=== PATIENT | male | born 1965 | race Caucasian/White ===

== ENCOUNTER 2025-01-13 23:01 | Inpatient (IN) | payer MEDICAID ==
[~2025-01-13] VITALS: Ht 180.3 cm; Wt 79.0 kg
--- NOTE | 2025-01-13 23:17 | Physician Documentation ---
History of Present Illness ~ Chief Complaint: Abdominal Pain Stated Complaint: TRANSFER M ALS SE Time Seen by MD: 23:16 HPI Patient presents to the emergency room as a transfer from [facility] for GI bleed. He has a history of duodenal ulcer. He endorses melena over the past couple of days. He is not on blood thinners. Denies NSAID use. Reports hematemesis. Medication Reconciliation Allergies: Coded Allergies: banana (Verified Allergy, Unknown, 01/13/25) carrot (Verified Allergy, Unknown, 01/13/25) morphine (Verified Allergy, Unknown, 01/13/25) Uncoded Allergies: PENICIALLNS (Allergy, Unknown, 01/13/25) PHENOBARBITOL (Allergy, Unknown, 01/13/25) SALMON (Allergy, Unknown, 01/13/25) Review of Systems ROS All review of systems negative except as per HPI Physical Exam Vital Signs: Temperature: 98.4, Source: Oral, Heart Rate: 93, Respiratory Rate: 16, BP: 98/51, Pulse Oximetry: 98, Weight: 79.000 Oxygen Flow Rate: 0 Physical Exam General: Patient is awake, alert, oriented x4 in no acute distress Head: Normocephalic and atraumatic. Eyes: Conjunctival normal. EOMI. PERRL. ENT: Mucous membranes moist. Neck: Supple, trachea is midline. Chest: Clear to auscultation bilaterally without rales, rhonchi, or wheezes. There is no accessory muscle use or retractions. Cardiac: RRR without murmurs, gallops, or rubs. Abd: Soft, nondistended, nontender, with normoactive bowel sounds. No guarding, rebound, or rigidity. Progress Results/Orders Results/Orders Orders - JUSTIN TIRADO MD Saline Lock (01/13/25 23:05) Type And Screen (01/13/25 23:05) Pantoprazole 40mg/Ns 100ml Bag (Protonix (01/14/25 01:00) Page Hospitalist (01/13/25 23:22) Fill Out Med Reconciliation (01/13/25 23:22) Completed Orders - JUSTIN TIRADO MD Cbc/Diff (01/13/25 23:05) Lipase (01/13/25 23:05) CMP (01/13/25 23:05) Vital Signs 01/13/25 01/13/25 23:02 23:15 Temp 98.4 98.4 Pulse 93 93 Resp 16 16 B/P (MAP) 111/70 98/51 (67) Pulse Ox 98 98 O2 Flow Rate 0 Laboratory Tests Test 01/13/25 23:17 White Blood Count 10.4 Red Blood Count 2.22 L Hemoglobin 7.5 L Hematocrit 21.3 *L Mean Corpuscular Volume 96.2 Mean Corpuscular Hemoglobin 34.0 H Mean Corpuscular Hemoglobin Concent 35.4 Red Cell Distribution Width 13.0 Platelet Count 216 Mean Platelet Volume 8.1 Neutrophils (%) (Auto) 63.3 Lymphocytes (%) (Auto) 22.5 Monocytes (%) (Auto) 13.5 H Eosinophils (%) (Auto) 0.3 Basophils (%) (Auto) 0.4 Neutrophils # (Auto) 6.6 Lymphocytes # (Auto) 2.4 Monocytes # (Auto) 1.4 H Eosinophils # (Auto) 0.0 Basophils # (Auto) 0.0 CBC Comment Sodium Level 137 Potassium Level 4.5 Chloride Level 104 Carbon Dioxide Level 23.5 L Anion Gap 10 Blood Urea Nitrogen 64 H Creatinine 1.07 Estimated GFR/1.73 m2 70 BUN/Creatinine Ratio 59.8 H Glucose Level 238 H Calcium Level 8.6 Total Bilirubin 0.5 Aspartate Amino Transf (AST/SGOT) 39 H Alanine Aminotransferase (ALT/SGPT) 70 Alkaline Phosphatase 88 Total Protein 5.2 L Albumin 2.5 L Globulin 2.7 Albumin/Globulin Ratio 0.9 L Lipase 60 Chemistry Comments Medical Decision Making Findings Patient presents to the emergency room as a transfer from [facility] for GI bleed. Protonix drip ordered. Patient's blood pressure is reassuring. Noted anemia however no active bleeding at this time and I believe he is safe for the floor. Departure Admitted to Inpatient Unit: yes, to hospitalist Impression: Primary Impression: GI bleed Condition: Guarded Referrals: NO PRIMARY CARE PROVIDER (PCP) Critical Care Note Total Time (mins): 30 Critical Care Note The very real possibility of a deterioration of this patient's condition required the highest level of my preparedness for sudden, emergent intervention. I provided critical care services, which included medication orders, frequent reevaluations of the patient's condition and response to treatment, ordering and reviewing test results, and discussing the case with various consultants. Excludes time spent performing separately billable procedures. The critical care time associated with the care of the patient was 30 minutes not counting procedures Signature Scribe Signature: No scribe Attestation: The note accurately reflects work and decisions made by me.Justin Tirado MD 01/13/25 23:57 JUSTIN TIRADO MD Jan 13, 2025 23:17
[2025-01-13 23:30] LABS: MEAN PLATELET VOLUME 8.1 FL (7.4-10.4); RED CELL DISTRIBUTION WIDTH 13.0 % (11.5-14.5)
[2025-01-13 23:43] LABS: CREATININE 1.07 MG/DL (0.60-1.10); TOTAL CARBON DIOXIDE 23.5 MMOL/L (24-32); eCRCL 77 ML/MIN; eGFR 70 ML/MIN
[2025-01-14] VITALS (12 sets, daily range): BP systolic 74–124; BP diastolic 41–70; PULSE 65–85; RESP 13–21; TEMP 97.3–99.6; O2SAT 96–100
[2025-01-14] MEDS ORDERED: LORA10TA7 PO (00:45)
[2025-01-14] MEDS ORDERED: FURO-150 PO (00:45)
[2025-01-14] MEDS ORDERED: GABA300T26 PO (00:45)
[2025-01-14] MEDS ORDERED: LANTUS SUBCUT (00:49)
[2025-01-14] MEDS ORDERED: INSU100V49 (00:49)
[2025-01-14] MEDS ORDERED: TAMS-55 PO (00:49)
[2025-01-14] MEDS ORDERED: EPIN0.3P3 IM (00:49)
[2025-01-14] MEDS ORDERED: potassium Cl 40MEQ/1/2NS 520ml 520 ML IV PRN (00:50)
[2025-01-14] MEDS ORDERED: potassium Cl 20 mEq SR tablet PO PRN ×2 (00:50)
[2025-01-14] MEDS ORDERED: magnesium sulf-water 4G/100mL 100 ML IV PRN (00:50)
[2025-01-14] MEDS ORDERED: magnesium Cl slow-release 64mg tablet PO PRN (00:50)
[2025-01-14] MEDS ORDERED: magnesium sulf-water 2g/50mL 50 ML IV PRN (00:50)
[2025-01-14] MEDS ORDERED: glucagon, human recombinant 1mg kit SUBCUT PRN (00:55)
[2025-01-14] MEDS ORDERED: dextrose 50%-water 50ml dispensing syringe IV PRN ×2 (00:55)
[2025-01-14] MEDS ORDERED: DEXTROSE 15 GM of carb/4 tabs (each vial/BOTTLE has 4 tablets) PO PRN ×2 (00:55)
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
--- NOTE | 2025-01-14 01:31 | RADIOLOGY REPORT ---
CHEST RADIOGRAPH Indication: rule out aspiration Technique: Single frontal view of the chest was obtained COMPARISON: None FINDINGS: Lines and Tubes: None Lungs: Clear. Pronounced left hemidiaphragmatic elevation. Pleura: No effusion. No pneumothorax. Cardiomediastinal contours: Unremarkable Bones: Unremarkable IMPRESSION: 1. No radiographic evidence of acute cardiopulmonary abnormality.
[2025-01-14 01:37] LABS: APTT 26 SECONDS (22-32); INR 1.1 INR
[2025-01-14] MEDS: insulin regular, human 10 units/0.1 ml syringe IV ONE (01:41)
[2025-01-14] MEDS: normal saline 1000ml 1,000 ML IV SCH (01:47)
[2025-01-14] MEDS: pantoprazole 40MG/NS 100ML BAG 100 ML IV SCH (01:49)
[2025-01-14] MEDS: pantoprazole 40MG/NS 100ML BAG 100 ML IV ONE (01:50)
--- NOTE | 2025-01-14 02:03 | ELECTROCARDIOGRAPH REPORT ---
[facility] Test Date: 2025-01-14 Test Time: 02:00:01 Pat Name: JAVIER WILLIAMSON Department: [facility] Patient ID: [id number] Room: ED 6 1 Gender: M [employer]ant Property: : 1965 Requested By: FRITZ BECK Order Number: [id number] Reading MD: Measurements Intervals [place] Rate: 93 P: 44 LA: 113 QRS: 83 QRSD: 94 T: 152 QT: 381 QTc: 474 Interpretive Statements Sinus rhythm Multiple premature complexes, vent & supraven Borderline short LA interval Consider RVH or posterior infarct Abnormal T, consider ischemia, lateral leads Please click the below link to view image of tracing.
[2025-01-14] MEDS: ondansetron/PF 4mg/2ml inj IV PRN (03:20)
--- NOTE | 2025-01-14 03:46 | RADIOLOGY REPORT ---
EXAM: CT CT HEAD INDICATION: recurrent syncope TECHNIQUE: CT of the head without intravenous contrast. Radiation Dose : 1. Head: CT Dose: CTDI volume is 54.74 mGy. Dose-length product is 1115.17 mGy*cm The dose indicators for CT are the volume Computed Tomography (CT) Dose Index (CTDIvol) and the Dose Length Product (DLP), and are measured in units of mGy and mGy-cm, respectively. These indicators are not patient dose, but values generated from the CT scanner acquisition factors. The report includes radiation exposure data for exposures received during this examination. COMPARISON: None FINDINGS: There is no evidence of acute intracranial hemorrhage, extra-axial collection, mass effect, midline shift, herniation or hydrocephalus. Increased prominence of the ventricles, sulci and cisterns consistent with the sequelae of atrophic cortical volume loss. The lewis-white differentiation is intact. Moderate diffuse confluent periventricular and subcortical white matter hypoattenuation is nonspecific but may be related to small vessel ischemic disease. The visualized paranasal sinuses and mastoid air cells are clear. The surrounding soft tissues and osseous structures are unremarkable. IMPRESSION: 1. No acute intracranial abnormality. 2. Chronic sequelae of microangiopathy and atrophic cortical volume loss. Radiation optimization: All CT scans at this facility use at least one of these dose optimization techniques: automated exposure control mA and/or kV adjustment per patient size (includes targeted exams where dose is matched to clinical indication) or iterative reconstruction.
[2025-01-14 04:08] LABS: URINE AMPHETAMINE SCREEN NEGATIVE (Neg); URINE BARBITUATE SCREEN NEGATIVE (Neg); URINE BENZODIAZEPINES SCREEN NEGATIVE (Neg); URINE CANNABINOID SCREEN POSITIVE (Neg); URINE COCAINE SCREEN NEGATIVE (Neg); URINE METHADONE SCREEN NEGATIVE (Neg); URINE OPIATE SCREEN NEGATIVE (Neg); URINE PHENCYCLIDINE SCREEN NEGATIVE (Neg)
[2025-01-14 04:22] LABS: LEUKOCYTE ESTERASE ,URINE NEGATIVE (Neg); NITRITES, URINE NEGATIVE (Neg); OCCULT BLOOD,URINE NEGATIVE (Neg)
[2025-01-14 04:27] LABS: UA COLLECTION TYPE NON-SPECIFIED
[2025-01-14] MEDS: HYDROmorphone inj. 0.5 MG/0.5 ML DISP.SYRIN IV ONE (04:53)
[2025-01-14 07:19] LABS: APTT 24 SECONDS (22-32); INR 1.2 INR
[2025-01-14 07:21] LABS: MEAN PLATELET VOLUME 8.8 FL (7.4-10.4); RED CELL DISTRIBUTION WIDTH 14.4 % (11.5-14.5)
[2025-01-14 07:44] LABS: CREATININE 1.02 MG/DL (0.60-1.10); TOTAL CARBON DIOXIDE 24.5 MMOL/L (24-32); eCRCL 81 ML/MIN; eGFR 74 ML/MIN
[2025-01-14 07:59] LABS: ETHANOL < 10 MG/DL (<10)
[2025-01-14] MEDS: K and/or MAG REPLACEMENT MC SCH (08:00)
[2025-01-14] MEDS: INSULIN LISPRO 100 UNIT/ML INSULN.PEN MULTI-DOSE SQ SCH (08:08)
[2025-01-14] MEDS ORDERED: fentaNYL/PF 50MCG/1 ML 2ML syringe ONE (09:22)
[2025-01-14] MEDS ORDERED: midazolam 1 mg/ML 2ml injection ONE (09:22)
[2025-01-14] MEDS ORDERED: LIDOcaine 2% (20mg/ml) 5ml vial ONE (09:28)
[2025-01-14] MEDS ORDERED: propofol inj 20 ML IV ONE (09:28)
[2025-01-14] MEDS ORDERED: LIDOcaine 1%/PF 5ML 10 MG/ML VIAL ONE (09:38)
--- NOTE | 2025-01-14 10:37 | CONSULTATION REPORT - RESIDENT ---
Consult Providers to CC Resident Creating Document: OBDULIO LEWIS RES History of Present Illness Reason for Admit\Complaint: Reason of GI consult: Melena and hematemesis. History of Present Illness 59 years old male patient came to the hospital transferred from [facility]. The patient presented there with complaints of black vomitus and black tarry stools for approximately 5 days. He stated that he presented with several episodes counting around 5--10 episodes in a day. Associated to this symptom the patient also endorsed diffuse abdominal pain and dizziness. Reports no aggravating or relieving factors. Denies using excessive aspirin or nonsteroidal anti-inflammatories in the recent past. No history of excessive alcohol use, but agrees to consuming a drink or two every week. Has a history of peptic ulcer disease in the past. Apparently had surgery for it, nature of which is unclear. His last colonoscopy was around 6-7 years ago with normal results and an EGD, does not recall the results of EGD. Patient's hemoglobin upon admission was 7.5 g, he remained hemodynamically stable, received a unit of packed red blood cells in the the transferring facility. Allergies: Coded Allergies: banana (Verified Allergy, Unknown, 01/13/25) carrot (Verified Allergy, Unknown, 01/13/25) morphine (Verified Allergy, Unknown, 01/13/25) Uncoded Allergies: PENICIALLNS (Allergy, Unknown, 01/13/25) PHENOBARBITOL (Allergy, Unknown, 01/13/25) SALMON (Allergy, Unknown, 01/13/25) Home Medications Home Medications Active Reported Epipen 2-Filemon (Epinephrine HCl) 0.3 Mg/0.3 Ml Auto.injct Unknown Dose IM ONCE 1 Days Insulin Lispro 100 Unit/Ml Vial Lantus* (Insulin Glargine) 100 Unit/1 Ml Vial 10 Units SUBCUT HS 30 Days Flomax* (Tamsulosin HCl) 0.4 Mg Cap.sr.24h 1 Cap PO DAILY 30 Days Loratadine 10 Mg Tablet 1 Tab PO DAILY 30 Days Horizant (Gabapentin Enacarbil) 300 Mg Tablet.er 1 Tab PO Q12H 30 Days Lasix* (Furosemide) 20 Mg Tablet 40 Tab PO DAILY 30 Days Past Medical History Past Medical History Hypertension, gastritis, duodenitis, gastroparesis Exam Vitals: Vital Signs Date Time Temp Pulse Resp B/P (MAP) Pulse Ox O2 Delivery O2 Flow Rate FiO2 01/14/25 10:20 71 14 102/70 (81) 100 Nasal Cannula 2.0 01/14/25 09:50 97.7 Physical exam: General: Awake, alert, oriented. No acute distress. Well-developed, hydrated and well-built nourished. No anemia, Jaundice or clubbing. HEENT: Conjunctive are pink, sclerae clear, no icterus, pupil is equal in both sides, reactive to light, no ear discharge, absence of upper and lower incisors, no pharyngeal erythema or an edema. Neck: Supple, no adenopathy, thyromegaly. Trachea is midline. No JVD. Chest: Respiratory: Vesicular breath sounds. No ronchi, crepitus or wheezing. Resonance is normal upon percussion of all lung mackenzie. Cardiovascular: S1-S2 regular sinus rhythm and, regular rate, no gallops, no rubs, no murmurs Abdomen: No visible distention, Bowel sounds present on auscultation, on palpation: soft, diffuse tenderness with deep palpation, no guarding, no rigidity. 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 Neurologic: Mental status: alert and conscious, oriented to place, person and time, preserved memory, normal speech. Cranial nerves I-XII: Normal. Motor system: Preserved power, coordination, no evidenced involuntary movements, strength 5/5 in four extremities. Sensory system: Preserved temperature, pain and vibration sensation. 2+ deep tendon reflexes in biceps, triceps, quadriceps. Negative Babinski. Cerebellar: No nystagmus, dysdiadochokinesia, normal ewwrrm-ug-gniz testing. Skin: Warm and dry. Diagnostic Data Last Recorded Lab Results: 01/14/25 0634 01/14/25 0634 Diagnostic Data: Laboratory Tests Test 01/14/25 06:34 Prothrombin Time 11.7 SECONDS (9.0-12.0) INR International Normalized Ratio 1.2 INR Activated Partial Thromboplast Time 24 SECONDS (22-32) Coagulation Comments Additional Plan Assessment and plan: 59 years old male patient came to the hospital transferred from [facility] for further management of upper GI bleeding. Upper GI bleedin) Peptic Ulcer disease is the most likely cause, because it is the most common condition causing upper GI bleed. Furthermore he does have a history of peptic ulcer disease in the past and is more prone for recurrent peptic ulcer disease. Other etiologies including gastroesophageal variceal bleed, gastric esophageal malignant lesions are less likely. Gastrointestinal vascular lesions are possible. Patient did have anemia, transfused appropriately. CT angiogram did not show any actively bleeding lesions. Recommendations: EGD this morning to evaluate causes for upper GI bleed, if necessary therapeutic maneuvers depending on the findings of EGD. The risks and benefits of EGD including hemorrhage and perforation and need for surgical intervention in the event of such a complication explained, patient understands and wishes to proceed. Further recommendations will be made depending on the findings of EGD. Conitnue protonix drip, can soon be switched over to oral Protonix after the planned EGD Continue NPO status Transfuse if Hb levels drop < 7. Avoid NSAIDs. Other comorbidities: Recurrent syncope. Chronic HFmrEF. Type 2 diabetes Mellitus. CKD stage 2. Metabolic acidosis. H/o of Hep C. BPH. All of above comorbidities addressed appropriately by the primary care team Code status: Full code DVT prophylaxis: SCDs Analgesia/sedation: On acetaminophen and Dilaudid prn. Line/tube: PIV GI prophylaxis: On Protonix drip. Nutrition: NPO for EGD PT: No Prognosis: Guarded Obdulio Hare Internal Medicine Resident [facility] Sepsis Screening Reassessment Date: Jan 14, 2025 Date of Service: Jan 14, 2025 Billing Provider: CANDIE KISER MD, FRANCO LUIS, RES Jan 14, 2025 10:37 CANDIE KISER MD Jan 14, 2025 11:34
--- NOTE | 2025-01-14 15:42 | VASCULAR REPORT ---
Indication: Dizziness /syncope Technique: Real-time ultrasound images of the neck vessels with lewis-scale, color and wave Doppler were obtained. Comparison: None Findings: Moderate bilateral atherosclerotic plaque. The following peak systolic velocities were recorded in cm/sec: Right internal carotid: 88 Right common carotid: 120 Right external carotid: 102 Right internal/common carotid ratio: 1.1 Left internal carotid: 119 Left common carotid: 131 Left external carotid: 78 Left internal/common carotid ratio: 1.6 Right vertebral artery: Patent with normal antegrade direction of flow. Left vertebral artery: Patent with normal antegrade direction of flow. Impression: No hemodynamically significant stenosis by velocity criteria. Moderate bilateral atherosclerotic plaque.
[2025-01-14] MEDS: HYDROmorphone inj. 0.5 MG/0.5 ML DISP.SYRIN IV PRN (17:12)
--- NOTE | 2025-01-14 18:49 | CARDIOLOGY REPORT ---
APPROVED REPORT EXAM: Comprehensive 2D, Doppler, and color-flow Echocardiogram. 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 2.94 cm IVC 16.69 mm FS (%) 21.3 % SV 31.6 ml CO 2.2 L/min M-Mode Dimensions Left Atrium(MM) 3.26 (2.5-4.0cm) Aortic Root 3.59 (2.2-3.7cm) Aortic Cusp Exc 1.72 (1.5-2.0cm) MV EPSS 0.8 (<0.5cm) Aortic Valve AoV Peak Edward. 128.8 cm/s AoV VTI 25.7 cm AO Peak GR. 6.6 mmHg AO Mean GR. 4 mmHg LVOT VTI 22.43 cm LVOT Peak Edward. 107.8 cm/s COREY(VTI)/BSA 2.63 cm2/m2 COREY (VTI) 2.63 cm2 AV DI 0.87 % Mitral Valve MV E Velocity 114.6 cm/s MV Peak Gr. 9 mmHg MV DECEL TIME 260 ms MV A Velocity 101.9 cm/s MV PHT 60 ms E/A Ratio 1.1 MVA (PHT) 3.67 cm2 MV VMax 148.0 cm/s TDI Lateral E' P. V 8.43 cm/s E/Lateral E' 13.6 Pulmonary Valve PAEDP 11.69 mmHg Tricuspid Valve TR P. Velocity 209 cm/s RAP ESTIMATE 10 mmHg TR Peak Gr. 18 mmHg RVSP 28 mmHg LEFT VENTRICLE The left ventricle is normal size with mild proximal septal thickening. Overall systolic function is mildly decreased. LVEF is 45%. RIGHT VENTRICLE Right ventricle is mildly dilated with adequate function. ATRIA The left atrium size is normal. AORTIC VALVE Trileaflet AV appears mildly sclerotic without stenosis. No insufficiency. MITRAL VALVE Mitral valve leaflets are thickened with mild annular calcification. No stenosis. Trace regurgitation. TRICUSPID VALVE The tricuspid valve is normal in structure with trace regurgitation. PULMONIC VALVE The pulmonary valve is normal in structure with trace insufficiency. GREAT VESSELS The aortic root is normal in size. The ascending aorta is normal in size. The IVC is normal in size and collapses >50% with inspiration. PERICARDIUM Normal pericardium. No effusion. Other Information Study Quality: Fair due to body habitus. Conclusion The left ventricle is normal size with mild proximal septal thickening. Overall systolic function is mildly decreased. LVEF is 45%. Right ventricle is mildly dilated with adequate function. The left atrium size is normal. Trileaflet AV appears mildly sclerotic without stenosis. No insufficiency. Mitral valve leaflets are thickened with mild annular calcification. No stenosis. Trace regurgitation. The tricuspid valve is normal in structure with trace regurgitation. The pulmonary valve is normal in structure with trace insufficiency. Normal pericardium. No effusion.
--- NOTE | 2025-01-14 20:04 | PROGRESS NOTE- Residence ---
Progress Note - Resident Providers to CC Resident Creating Document: LIZZY LINTON RES CC: ASHLIE GARNETT MD ~ Antibiotic Timeout Antibiotic Ordered?: No Subjective Patient was seen and examined at his bedside, patient stated that he feels slightly better compared to yesterday. Patient was transferred 1 unit of PRBC and he underwent his EGD today which reported low active bleeding and no active ulcer Objective Vital Signs Date Time Temp Pulse Resp B/P (MAP) Pulse Ox O2 Delivery O2 Flow Rate FiO2 01/14/25 17:12 15 01/14/25 15:00 97.4 65 98/54 (69) 96 Nasal Cannula 3.0 Result Diagram: 01/14/2563301/14/25633 General: Awake, oriented to person, place and time HEENT: Pale conjunctivae, sclerae clear, no icterus, pupil is equal in both sides, reactive to light, no ear discharge, no pharyngeal erythema or an edema. Patient has few teeth in the upper jaw Neck: Supple, no JVD, no lymphadenopathy and thyromegaly. Chest: Equal air entry on both lungs, no additional sounds no rhonchi no wheezing at the moment. Cardiovascular: S1-S2 regular sinus rhythm and, regular rate, no gallops, no rubs, no murmurs Abdomen: No visible peristalsis, Bowel sounds present on auscultation, soft, diffuse tenderness noted especially in the epigastric region, no guarding, no rigidity; surgical scar noted Extremities: No cyanosis clubbing or edema, capillary refill intact, peripheral pulsations are intact on both sides. Patient has a right 4th toe amputation; patient has left knee surgical scar Central Nervous System: No focal neurological deficits, no motor or sensory weakness in all 4 extremities, could move all 4 extremities, 2+ deep tendon reflexes, negative Babinski. Musculoskeletal: No joint swelling, deformities, inflammations, and no scoliosis and back tenderness Skin: Warm and dry. Dry oral mucosa. Coagulation Studies Laboratory Tests Test 01/14/25 06:34 Prothrombin Time 11.7 SECONDS (9.0-12.0) INR International Normalized Ratio 1.2 INR Activated Partial Thromboplast Time 24 SECONDS (22-32) Coagulation Comments Advance Care Planning Advanced Care plannin - 30 Minutes Plan Plan Possible upper GI bleed History of perforated duodenal ulcer Normocytic normochromic anemia Patient's hemoglobin increased to 8.2 after 1 unit transfusion of PRBC Patient has soft blood pressure but maintaining map more than 65 No evidence of cirrhosis on CT. Total bilirubin with in normal limits. At the outside hospital, CTA angio abdomen/pelvis with contrast was done which showed no evidence of active GI bleed, elevation of the left hemidiaphragm, mild heterogenicity can be related to atelectasis, 9 mm hypodense lesion within the spleen stable, mild perinephric stranding, no hydronephrosis, colonic diverticula including hypodense diverticular limits evaluation for a bleed, under distended thick-walled urinary bladder, prostatomegaly with calcifications, subcentimeter short axis lymph nodes, fat and omentum containing ventral hernia. GI was consulted, patient underwent EGD today which reported low active bleeding and no active ulcer(complete report pending) Continue Protonix drip today, transitioned to IV Protonix b.i.d. from tomorrow Continue NS at 75 mL/hour Continue Zofran 4 mg IV q.6h p.r.n. for nausea/vomiting Check H&H q.6h Iron studies, vitamin B12 and folate level ordered TSH level ordered Recurrent syncope Blurry vision Carotid artery ultrasound reported no significant stenosis; moderate bilateral atherosclerotic plaque Head CT reported no acute changes;Chronic sequelae of microangiopathy and atrophic cortical volume loss. Continue IV fluids Orthostatic vitals ordered Heart failure with reduced ejection fraction Echocardiogram reported EF of 45%. The left ventricle is normal size with mild proximal septal thickening. 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 daily Active drug abuse Patient states he continues to smoke marijuana every day Reviewed social Service and substance abuse consults Critical care time 35 minutes. Diet: Clear liquid diet DVT prophylaxis: SCDs GI prophylaxis: Protonix Disposition: We will continue to monitor the patient. Lizzy Linton MD Internal Medicine Resident, PGY 1 Date of Service: Jan 14, 2025 Billing Provider: ASHLIE GARNETT MD Common Visit Codes: [id number] CARE 30-74 MIN LIZZY LINTON, RES Jan 14, 2025 20:04 ASHLIE GARNETT MD Jan 19, 2025 16:27
[2025-01-14] MEDS: insulin glargine (Lantus) pen - multi-dose SQ SCH (21:42)
[2025-01-14 22:19] LABS: PRO BRAIN NATRIURETIC PEPTIDE 185 PG/ML (0-125)
[2025-01-14] MEDS: LidoCAINE 2% Topical Jelly 11mL syringe (UROJET) TOP ONE (23:58)
[2025-01-15] VITALS (14 sets, daily range): BP systolic 96–135; BP diastolic 58–76; PULSE 67–88; RESP 13–23; TEMP 97.7–98.3; O2SAT 95–100
[2025-01-15 00:27] LABS: MEAN PLATELET VOLUME 7.7 FL (7.4-10.4); RED CELL DISTRIBUTION WIDTH 14.8 % (11.5-14.5)
--- NOTE | 2025-01-15 08:54 | RADIOLOGY REPORT ---
EXAM: DI CHEST,SINGLE VIEW Indication: pain Technique: Single frontal view of the chest was obtained Comparison: DI CHEST,SINGLE VIEW on DOS: 01/14/25, XR CHEST 1 VIEW AP OR PA on DOS: 01/13/25 FINDINGS: Lines and Tubes: None Lungs: No focal consolidation. Pleura: No effusion. No pneumothorax. Cardiomediastinal contours: Unremarkable. Atherosclerotic vascular calcifications of the thoracic aorta are noted. Bones: No acute osseous abnormality. IMPRESSION: No acute cardiopulmonary disease.
--- NOTE | 2025-01-15 08:59 | PROGRESS NOTE- Residence ---
Progress Note - Resident Providers to CC Resident Creating Document: MELA LEWISLucho SAGASTUMEIS, RES ~ Antibiotic Timeout Antibiotic Ordered?: No Subjective The patient has been evaluated at the bedside. Patient currently complaints mild shortness of breath, states that he did not have bowel movements. Last bowel movement was six days ago when he reported melena. The patient also reports pain in her right side of the abdomen 2/10 in intensity without radiation. EGD performed yesterday showed normal esophagus, large paraesophageal hernia, normal duodenal bulb, no blood or bleeding lesion seen in the stomach. Objective Vital Signs Date Time Temp Pulse Resp B/P (MAP) Pulse Ox O2 Delivery O2 Flow Rate FiO2 01/15/25 06:30 74 01/14/25 20:00 13 97 Room Air 01/14/25 15:00 97.4 98/54 (69) 3.0 Physical exam: Physical exam: General: Awake, alert, oriented. No acute distress. Well-developed, hydrated and well-built nourished. No anemia, Jaundice or clubbing. HEENT: Conjunctive are pink, sclerae clear, no icterus, pupil is equal in both sides, reactive to light, no ear discharge, absence of upper and lower incisors, no pharyngeal erythema or an edema. Neck: Supple, no adenopathy, thyromegaly. Trachea is midline. No JVD. Chest: Respiratory: Vesicular breath sounds. No ronchi, crepitus or wheezing. Resonance is normal upon percussion of all lung mackenzie. Cardiovascular: S1-S2 regular sinus rhythm and, regular rate, no gallops, no rubs, no murmurs Abdomen: No visible distention, Bowel sounds present on auscultation, on palpation: soft, tenderness at the level of the right side of the abdomen with deep palpation, no guarding, no rigidity. 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 Neurologic: Mental status: alert and conscious, oriented to place, person and time, preserved memory, normal speech. Cranial nerves I-XII: Normal. Motor system: Preserved power, coordination, no evidenced involuntary movements, strength 5/5 in four extremities. Sensory system: Preserved temperature, pain and vibration sensation. 2+ deep tendon reflexes in biceps, triceps, quadriceps. Negative Babinski. Cerebellar: No nystagmus, dysdiadochokinesia, normal [id number] testing. Skin: Warm and dry. Result Diagram: 01/16/25 1212 01/16/25 0658 Coagulation Studies Laboratory Tests Test 01/14/25 06:34 Prothrombin Time 11.7 SECONDS (9.0-12.0) INR International Normalized Ratio 1.2 INR Activated Partial Thromboplast Time 24 SECONDS (22-32) Coagulation Comments Assessment Assessment 59 years old male patient came to the hospital transferred from [facility] for further management of upper GI bleeding. Plan Plan Upper GI endoscopy performed yesterday showed normal esophagus, large paraesophageal hernia. Antrum of the stomach was biopsied. Normal duodenal bulb. No blood or bleeding lesions were seen induced stomach, esophagus or duodenal bulb. Recommendations: Continue regular diet. Protonix 40 mg daily. Continue management as per primary team. Awaiting for pathology results. Keep monitoring for recurrent bleeding. Transfuse if Hb levels drop < 7. Avoid NSAIDs. Other comorbidities: Recurrent syncope. Chronic HFmrEF. Type 2 diabetes Mellitus. CKD stage 2. Metabolic acidosis. H/o of Hep C. BPH. All of above comorbidities addressed appropriately by the primary care team Code status: Full code DVT prophylaxis: SCDs Analgesia/sedation: On acetaminophen and Dilaudid prn. Line/tube: PIV GI prophylaxis: Protonix 40 mg daily. Nutrition: Regular diet. PT: Yes Prognosis: Guarded Jeovany Hare Internal Medicine Resident [facility] Date of Service: Jan 15, 2025 Billing Provider: CANDIE KISER MD Addendum We were called around 4:00 p.m. because the patient complained of right-sided abdominal pain. During our evaluation patient was complaining of severe pain however his physical exam was not consistent with the symptoms. An ultrasound and CAT scan were done to evaluate this in view of endoscopy the previous day, both of which were within normal limits. Patient apparently subsequently developed low blood pressure and rapid response was called and was successfully resuscitated. Patient was re-evaluated around 630 in the evening at which time he was very confused and agitated. He was somewhat incoherent. He was very pruritic and scratching his entire body and he pulled his IV out and there was some blood at the IV site. The nurse was called and this was attended to. Patient did not complain of abdominal pain at that time and he just wanted to go home. I was called also to consider colonoscopy and he refused to have colonoscopy and refused to get the prep. The colonoscopy was requested because the endoscopy was essentially nondiagnostic for any bleeding lesions and apparently had another bout of melena. At that point I decided that the drop in hemoglobin and the melena was essentially simply the blood it had not been evacuated in the bowel yet. I did not see signs of any active bleeding at this time. I also did not think colonoscopy was necessity at that time. 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 At this time patient had stable vital signs and colonoscopy prep was not ordered because the patient refused and I also thought that the colonoscopy was not necessary at this time and it would be difficult for him to get prepped and colonoscopy be done. JEOVANY LEWIS, RES Jan 15, 2025 08:59 CANDIE KISER MD Jan 16, 2025 16:18
[2025-01-15 09:25] LABS: APTT 23 SECONDS (22-32); INR 1.1 INR
[2025-01-15 09:29] LABS: % IRON SATURATION 5 % (11-46); TOTAL CARBON DIOXIDE 20.0 MMOL/L (24-32)
[2025-01-15 09:30] LABS: CHOL/HDL RATIO 1.9 (0.00-4.99); CREATININE 1.15 MG/DL (0.60-1.10); LDL CHOLESTEROL 29 MG/DL (50-100); PHOSPHORUS 2.6 MG/DL (2.3-4.5); eCRCL 72 ML/MIN; eGFR 65 ML/MIN
[2025-01-15 10:36] LABS: MEAN PLATELET VOLUME 8.0 FL (7.4-10.4); RED CELL DISTRIBUTION WIDTH 14.6 % (11.5-14.5)
[2025-01-15 12:29] LABS: MEAN PLATELET VOLUME 7.9 FL (7.4-10.4); RED CELL DISTRIBUTION WIDTH 14.7 % (11.5-14.5)
[2025-01-15 15:39] LABS: OCCULT BLOOD STOOL POSITIVE (Neg)
[2025-01-15 16:01] LABS: ABG BASE EXCESS -4.3 mmol/L (-2.0-3.0); ABG HCO3 17.2 mmol/L (21.0-28.0); ABG OXYGEN SATURATION 99.9 % (94.0-98.0); ABG PCO2 (T) 21.3 mmHg (35.0-48.0); ABG PH (T) 7.527 (7.350-7.450); ABG PO2 (T) 477.0 mmHg (83.0-108.0); ALLEN'S TEST POSITIVE; FCOHb 0.6 % (0.5-1.5); FHHb 0.1 % (0.0-5.0); FIO2 100.0 mmHg/%; FMetHb 0.3 % (0.0-1.5); FO2Hb 99.0 % (94.0-98.0); MODE MASK - NRB; PATIENT TEMPERATURE 37.2; TOTAL HEMOGLOBIN 8.8 G/dl (13.5-17.5)
--- NOTE | 2025-01-15 16:40 | RADIOLOGY REPORT ---
Indication: R ABD PAIN Technique: DI ABDOMEN,SINGLE VIEW([id number] Comparison: None FINDINGS/IMPRESSION: m multiple loops of air distended small bowel up to approximately 3.5 cm which can be secondary ileus, obstruction. Cholecystectomy. Atherosclerotic disease. Upper abdomen not completely visualized.
--- NOTE | 2025-01-15 16:41 | RADIOLOGY REPORT ---
CHEST RADIOGRAPH Indication: OLIVA ORDERS Technique: DI CHEST,SINGLE VIEW COMPARISON: None FINDINGS: The cardiac silhouette is enlarged. The lungs demonstrate bilateral patchy airspace opacities. The pulmonary vasculature is prominent. There is no pleural effusion. There is no pneumothorax. Elevation left hemidiaphragm. IMPRESSION: Cardiomegaly with pulmonary vascular congestion and bilateral patchy airspace opacities.
--- NOTE | 2025-01-15 16:48 | RADIOLOGY REPORT ---
Indication: desatting and severe intractable pain Technique: CT axial images of the abdomen and pelvis are obtained without contrast. Coronal and sagittal reformats were obtained. Radiation Dose Information: CTDI volume is 16 mGy. Dose-length product is 907 mGy*cm Comparison: None FINDINGS: There is limited interpretation of the abdomen and pelvis without administration of intravenous contrast. Lung bases demonstrate atelectasis. Adrenal glands, spleen, pancreas, liver unremarkable in shape. Cholecystectomy. Kidneys demonstrate no hydronephrosis / nephrolithiasis. Stomach is partially distended. Small bowel loops are normal in caliber. Colonic diverticular disease. Normal appendix. Moderate volume stool in the colon. Abdominal aortic atherosclerotic disease. Bladder partially distended. No free pelvic fluid. No inguinal lymphadenopathy. No aggressive osseous process. Elevation left hemidiaphragm. There is a paraumbilical / left ventral wall hernia containing fat measuring 2.4 x 2.1 cm. Moderate thoracolumbar degenerative disc disease. IMPRESSION: Limited evaluation without contrast. Elevation left hemidiaphragm. Left ventral wall hernia containing fat measuring 2.5 cm. Atherosclerotic disease. Cholecystectomy. Colonic diverticular disease. Other findings as described.
[2025-01-15] MEDS: diazepam inj 5 MG/ML inj. IV PRN (17:17)
[2025-01-15 17:33] LABS: MEAN PLATELET VOLUME 8.2 FL (7.4-10.4); RED CELL DISTRIBUTION WIDTH 14.8 % (11.5-14.5)
[2025-01-15] MEDS: ondansetron/PF 4mg/2ml inj IV ONE (18:35)
--- NOTE | 2025-01-15 18:36 | RADIOLOGY REPORT ---
Indication: Intractable abdominal pain. Acute Mesenteric ischemia Technique: CT axial images of the abdomen and pelvis are obtained with intravenous contrast. Coronal and sagittal reformats were obtained. Radiation Dose Information: CTDI volume is 21 mGy. Dose-length product is 1548 mGy*cm Comparison: CT CT ABDOMEN PELVIS on DOS: 01/15/25 FINDINGS: No large defect within the main left right pulmonary arteries. Ascending aorta measures 3.2 cm. Aortic atherosclerotic disease descending thoracic aorta measures 2.3 cm diameter. Abdominal aorta normal in caliber with atherosclerotic calcification disease, mild eccentric mural wall thrombus. The celiac artery is demonstrating approximately 70% narrowing proximally. SMA is patent. Renal arteries patent. ADELAIDA patent. [id number] thoracolumbar degenerative disc disease. The trachea is patent. No pneumothorax. Bilateral atelectasis. No pulmonary airspace consolidation. Trace bilateral pleural effusions. Heart normal in size. Coronary artery calcification disease. No supraclavicular and axillary lymphadenopathy. Adrenal m glands unremarkable. Splenic hypodense lesion measuring 10 mm. Pancreas unremarkable. No enhancing hepatic lesion. Cholecystectomy. No hydronephrosis. Diffuse gastric wall edema / thickening and mucosal hyperemia. Small bowel loops normal in caliber. No pneumatosis. Colonic diverticular disease. Normal appendix. Moderate volume stool in the colon. Bladder distended. No free pelvic fluid. No inguinal lymphadenopathy. Elevation left hemidiaphragm. Left ventral wall abdominal hernia measuring 2.6 cm containing fat. IMPRESSION: Gastric wall edema / thickening and mucosal hyperemia, possibly secondary to gastritis. Recommend GI consultation to further evaluate. Patent SMA. No evidence for bowel pneumatosis. Approximately 70% narrowing of the proximal celiac artery which could be secondary to median arcuate ligament , Atherosclerotic disease. Coronary artery calcification disease. Splenic hypodense lesion measuring 10 mm which can be further characterized on multiphasic MRI abdomen with and without contrast Colonic diverticular disease. Other findings as described
--- NOTE | 2025-01-15 20:06 | VASCULAR REPORT ---
[facility] Vascular Department [facility] [address] [place] [address] [email or web address] LAC NEYMARO AARONI Name : JAVIER WILLIAMSON Date : 01/15/2025 Birthdate : 1965 Accession# : [id number] Sex : M Age : 59Y Roofing Layer : David Tavera RVT Referring Dr. : MORELIA FLORES Preliminary Report The above named patient was referred for a NON-INVASIVE MESENTERIC ARTERY EVALUATION. The evaluation includes grayscale imaging, color flow Doppler and spectral analysis of the mesenteric and other associated abdominal arteries. Patient IN-PATIENT [employer] Abdominal pain. Assessment Origin Proximal Mid Distal Superior Mesenteric A. PSV 119.2cm/s PSV 183.2cm/s PSV 153.8cm/s EDV 15.3cm/s EDV 16.7cm/s EDV 10.2cm/s Inferior Mesenteric A. PSV 80.1cm/s EDV 13.0cm/s Aortic Doppler Velocity Waveform Proximal Aorta 129.8 cm/sec Impression: Very poor visualization due to bowel gas. Celiac, hepatic, and splenic arteries are not visualized. Superficial femoral artery is poorly visualized, but no stenosis is noted in visualized portions.
--- NOTE | 2025-01-15 20:41 | PROGRESS NOTE- Residence ---
Progress Note - Resident Providers to CC Resident Creating Document: LIZZY LINTON RES CC: ASHLIE GARNETT MD ~ Antibiotic Timeout Antibiotic Ordered?: No Subjective The patient has been evaluated at the bedside. Patient was extremely anxious and agitated, patient's hemoglobin had dropped today and we transfused 1 unit of PRBC; patient's vitals were stable patient suddenly started hyperventilating and a rapid was called; ABG was done which showed metabolic alkalosis; patient appeared extremely anxious. Patient also developed black tarry stool; we immediately ordered a CT abdomen to rule out any bleeding post EGD, patient was complaining of severe abdominal pain throughout the abdomen we ordered a CTA abdomen/pelvis which reported more than 70% narrowing of the proximal celiac artery secondary to median arcuate ligament. Vascular surgeon has been consulted Objective Vital Signs Date Time Temp Pulse Resp B/P (MAP) Pulse Ox O2 Delivery O2 Flow Rate FiO2 01/15/25 17:50 98.2 67 18 128/67 (87) 97 Nasal Cannula 2.0 01/15/25 16:36 N/A Result Diagram: 01/15/25 1705 01/15/25 0857 General: Awake, oriented to person, place and time; extremely anxious HEENT: Pale conjunctivae, sclerae clear, no icterus, pupil is equal in both sides, reactive to light, no ear discharge, no pharyngeal erythema or an edema. Patient has few teeth in the upper jaw Neck: Supple, no JVD, no lymphadenopathy and thyromegaly. Chest: Equal air entry on both lungs, no additional sounds no rhonchi no wheezing at the moment. Cardiovascular: S1-S2 regular sinus rhythm and, regular rate, no gallops, no rubs, no murmurs Abdomen: No visible peristalsis, severe tenderness noted no guarding, no rigidity; surgical scar noted Extremities: No cyanosis clubbing or edema, capillary refill intact, peripheral pulsations are intact on both sides. Patient has a right 4th toe amputation; patient has left knee surgical scar Central Nervous System: No focal neurological deficits, no motor or sensory weakness in all 4 extremities, could move all 4 extremities, 2+ deep tendon reflexes, negative Babinski. Musculoskeletal: No joint swelling, deformities, inflammations, and no scoliosis and back tenderness Skin: Warm and dry. Dry oral mucosa. Coagulation Studies Laboratory Tests Test 01/15/25 08:57 Prothrombin Time 11.0 SECONDS (9.0-12.0) INR International Normalized Ratio 1.1 INR Activated Partial Thromboplast Time 23 SECONDS (22-32) Coagulation Comments Advance Care Planning Advanced Care plannin - 30 Minutes Assessment Assessment 59 years old male patient came to the hospital transferred from [facility] for further management of upper GI bleeding. Plan Plan Possible upper GI bleed History of perforated duodenal ulcer Normocytic normochromic anemia Patient had multiple his hemoglobin again at seven and was transferred 1 unit of PRBC today And underwent EGD yesterday which reported no active bleed Patient also had bloody study stools today Plan Continue IV Protonix to 40 mg b.i.d. Continue NS at 75 mL/hour Continue Zofran 4 mg IV q.6h p.r.n. for nausea/vomiting Check H&H q.6h Median arcuate ligament syndrome Splenic hypodense lesion Colonic diverticular disease. Abdominal pelvis CTA; reported 70% narrowing of the proximal celiac artery; atherosclerotic disease and coronary artery calcification noted and spleen hypodense measuring 10 mm Plan: Consulted vascular surgeon Appreciate recommendations Recurrent syncope Blurry vision Carotid artery ultrasound reported no significant stenosis; moderate bilateral atherosclerotic plaque Head CT reported no acute changes;Chronic sequelae of microangiopathy and atrophic cortical volume loss. Continue IV fluids Orthostatic vitals ordered Heart failure with reduced ejection fraction Echocardiogram reported EF of 45%. The left ventricle is normal size with mild proximal septal thickening Patient has no signs of fluid overload, and appears dehydrated BNP is mildly elevated at 185 Patient has continued to has a blood pressure; We will initiate GDMT drugs once patient stabilizes Diabetes mellitus type 2 complicated with peripheral neuropathy which was diagnosed two years ago Noncompliant Patient's HbA1c is elevated at 7 Initiated the patient on severe hyperglycemia hypoglycemic protocol Patient stated that he normally uses gabapentin for his peripheral neuropathy but stopped using couple of months ago; currently he has no neuropathic pain; hold gabapentin CKD stage G2 Continue IV fluids Transaminitis History of hepatitis C; patient has mild elevation of AST Benign prostatic hyperplasia Continue home medication tamsulosin 0.4 mg p.o. daily Active drug abuse Patient states he continues to smoke marijuana every day Patient's Toxicology tested positive for fentanyl Ordered social service and substance abuse consults Diet: Clear liquid diet DVT prophylaxis: SCDs GI prophylaxis: Protonix Disposition: Continue to closely monitor the patient, awaiting recommendations from vascular surgeon Lizzy Linton MD Internal Medicine Resident, PGY 1 Date of Service: Jan 15, 2025 Billing Provider: ASHLIE GARNETT MD Common Visit Codes: [id number] INP/OBS CARE(HIGH) LIZZY LINTON, RES Jan 15, 2025 20:41 ASHLIE GARNETT MD Jan 19, 2025 16:28
[2025-01-15 23:07] LABS: MEAN PLATELET VOLUME 7.8 FL (7.4-10.4); RED CELL DISTRIBUTION WIDTH 15.0 % (11.5-14.5)
[2025-01-16] VITALS (8 sets, daily range): BP systolic 110–144; BP diastolic 33–83; PULSE 66–92; RESP 14–20; TEMP 97.6–98.5; O2SAT 94–97
--- NOTE | 2025-01-16 05:14 | PROGRESS NOTE ---
Clinical Note Clinical Note Progress Note: Per night sign-out from the primary team, Dr. Vázquez was consulted regarding the CTA abdomen findings, CTA Abdomen revealed approximately 70% narrowing of the proximal celiac artery, likely secondary to median arcuate ligament compression. Dr. Vázquez advised that, given the degree of stenosis and the possible underlying median arcuate ligament syndrome (MALS), the patient would benefit from referral to a tertiary care center-- [place] or [facility] for further evaluation. Patient will benefit from further comprehensive vascular assessment and consideration of median arcuate ligament release, with or without stenting, particularly if the patient is symptomatic or if the stenosis is significant. Willy Cobos MD Internal Medicine Resident, PGY-2 WILLY COBOS, RES Jan 16, 2025 05:14
[2025-01-16 07:29] LABS: MEAN PLATELET VOLUME 7.8 FL (7.4-10.4); RED CELL DISTRIBUTION WIDTH 14.5 % (11.5-14.5)
[2025-01-16 07:45] LABS: APTT 25 SECONDS (22-32); INR 1.1 INR
[2025-01-16 07:49] LABS: CREATININE 1.01 MG/DL (0.60-1.10); PHOSPHORUS 2.6 MG/DL (2.3-4.5); TOTAL CARBON DIOXIDE 23.9 MMOL/L (24-32); eCRCL 82 ML/MIN; eGFR 75 ML/MIN
--- NOTE | 2025-01-16 09:34 | PROGRESS NOTE- Residence ---
Progress Note - Resident Providers to CC Resident Creating Document: OBDULIO LEWIS ALEJANDRO, RES ~ Antibiotic Timeout Antibiotic Ordered?: No Subjective The patient has been evaluated at the bedside. Has remained stable overnight. He states that pain is relieved with pain medication. No episodes of vomiting, melena or hematochezia reported. Last bowel movement this morning. Dr. Vázquez was consulted who advised that given 0 the degree of the stenosis in the possible underlying median arcuate ligament syndrome the patient will benefit from referral to tertiary care center. I discussed with the primary care doctor about last night events. I also reported to him that I did not see the necessity of colonoscopy at this time. I expressed difficulty in him getting prepped also. Next item I discussed the CT findings with him that I had seen last night. There was consensus that patient does not need any acute intervention at this time, colonoscopy if necessary could be performed as an outpatient. And also it was discussed that if indeed he does have significant celiac axis stenosis, he needs to be cared for in a tertiary care center. Objective Vital Signs Date Time Temp Pulse Resp B/P (MAP) Pulse Ox O2 Delivery O2 Flow Rate FiO2 01/16/25 06:30 65 01/16/25 06:00 98.2 20 114/58 (76) 94 Room Air 01/15/25 18:00 2.0 01/15/25 16:36 N/A Physical exam: General: Awake, alert, oriented. No acute distress. Well-developed, hydrated and well-built nourished. No anemia, Jaundice or clubbing. HEENT: Conjunctive are pink, sclerae clear, no icterus, pupil is equal in both sides, reactive to light, no ear discharge, absence of upper and lower incisors, no pharyngeal erythema or an edema. Neck: Supple, no adenopathy, thyromegaly. Trachea is midline. No JVD. Chest: Respiratory: Vesicular breath sounds. No ronchi, crepitus or wheezing. Resonance is normal upon percussion of all lung mackenzie. Cardiovascular: S1-S2 regular sinus rhythm and, regular rate, no gallops, no rubs, no murmurs Abdomen: No visible distention, Bowel sounds present on auscultation, on palpation: soft, tenderness at the level of the right side of the abdomen with deep palpation, no guarding, no rigidity. 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 Neurologic: Mental status: alert and conscious, oriented to place, person and time, preserved memory, normal speech. Cranial nerves I-XII: Normal. Motor system: Preserved power, coordination, no evidenced involuntary movements, strength 5/5 in four extremities. Sensory system: Preserved temperature, pain and vibration sensation. 2+ deep tendon reflexes in biceps, triceps, quadriceps. Negative Babinski. Cerebellar: No nystagmus, dysdiadochokinesia, normal [id number] testing. Skin: Warm and dry. Result Diagram: 01/16/2565701/16/25657 Coagulation Studies Laboratory Tests Test 01/16/25 06:58 Prothrombin Time 10.8 SECONDS (9.0-12.0) INR International Normalized Ratio 1.1 INR Activated Partial Thromboplast Time 25 SECONDS (22-32) Coagulation Comments Assessment Assessment 59 years old male patient came to the hospital transferred from [facility] for further management of upper GI bleeding. Plan Plan Abdominal pain: Possible Median arcuate ligament syndrome: Upper GI endoscopy performed yesterday showed normal esophagus, large paraesophageal hernia. Antrum of the stomach was biopsied. Normal duodenal bulb. No blood or bleeding lesions were seen induced stomach, esophagus or duodenal bulb. Rapid response was called yesterday due to right upper quadrant pain and respiratory rate of 6. The patient was evaluated by primary team, CTA scan of the abdomen with IV contrast was obtained which showed gastric wall edema, 70% narrowing in the proximal celiac artery which could be secondary to median arcuate ligament, atherosclerotic disease. Dr. Vázquez was consulted who advised that given the degree of the stenosis in the possible underlying median arcuate ligament syndrome the patient will benefit from referral to tertiary care center. Hemoglobin and hematocrit remained stable. The patient had received 2 units of blood so far, last unit of blood yesterday. No further obvious GI bleeding noticed. Recommendations: Continue current diet as tolerated. Metoclopramide IV as needed for nausea. Protonix 40 mg daily. Continue management as per primary team. Follow-up gastric pathology results. Can be done as an outpatient Other comorbidities: Recurrent syncope. Chronic HFmrEF. Type 2 diabetes Mellitus. CKD stage 2. Metabolic acidosis. H/o of Hep C. BPH. All of above comorbidities addressed appropriately by the primary care team Code status: Full code DVT prophylaxis: SCDs Analgesia/sedation: On acetaminophen and Dilaudid prn. Line/tube: PIV GI prophylaxis: Protonix 40 mg daily. Nutrition: Regular diet. PT: Yes Prognosis: Guarded Obdulio Hare Internal Medicine Resident [facility] Date of Service: Jan 16, 2025 Billing Provider: CANDIE KISER MD, FRANCO LUIS, RES Jan 16, 2025 09:34 CANDIE KISER MD Jan 16, 2025 16:33
[2025-01-16 12:53] LABS: MEAN PLATELET VOLUME 8.7 FL (7.4-10.4); RED CELL DISTRIBUTION WIDTH 15.0 % (11.5-14.5)
[2025-01-16 19:05] LABS: MEAN PLATELET VOLUME 8.2 FL (7.4-10.4); RED CELL DISTRIBUTION WIDTH 14.6 % (11.5-14.5)
--- NOTE | 2025-01-16 19:26 | PROGRESS NOTE- Residence ---
Progress Note - Resident Providers to CC Resident Creating Document: LIZZY LINTON RES CC: ASHLIE PA MD ~ Antibiotic Timeout Antibiotic Ordered?: No Subjective The patient has been evaluated at the bedside. Has remained stable overnight. He states that pain is relieved with pain medication. No episodes of vomiting, melena or hematochezia reported. Was bowel movement was reported this morning which also continued to be black tarry. Objective Vital Signs Date Time Temp Pulse Resp B/P (MAP) Pulse Ox O2 Delivery O2 Flow Rate FiO2 01/16/25 15:00 98.5 75 20 144/75 (98) 95 Room Air 01/15/25 18:00 2.0 01/15/25 16:36 N/A Result Diagram: 01/16/25 1833 01/16/25 0658 General: Awake, oriented to person, place and time; extremely anxious HEENT: Pale conjunctivae, sclerae clear, no icterus, pupil is equal in both sides, reactive to light, no ear discharge, no pharyngeal erythema or an edema. Patient has few teeth in the upper jaw Neck: Supple, no JVD, no lymphadenopathy and thyromegaly. Chest: Equal air entry on both lungs, no additional sounds no rhonchi no wheezing at the moment. Cardiovascular: S1-S2 regular sinus rhythm and, regular rate, no gallops, no rubs, no murmurs Abdomen: No visible peristalsis, severe tenderness noted no guarding, no rigidity; surgical scar noted Extremities: No cyanosis clubbing or edema, capillary refill intact, peripheral pulsations are intact on both sides. Patient has a right 4th toe amputation; patient has left knee surgical scar Central Nervous System: No focal neurological deficits, no motor or sensory weakness in all 4 extremities, could move all 4 extremities, 2+ deep tendon reflexes, negative Babinski. Musculoskeletal: No joint swelling, deformities, inflammations, and no scoliosis and back tenderness Skin: Warm and dry. Dry oral mucosa. Coagulation Studies Laboratory Tests Test 01/16/25 06:58 Prothrombin Time 10.8 SECONDS (9.0-12.0) INR International Normalized Ratio 1.1 INR Activated Partial Thromboplast Time 25 SECONDS (22-32) Coagulation Comments Assessment Assessment 59 years old male patient came to the hospital transferred from [facility] for further management of upper GI bleeding. Plan Plan Possible upper GI bleed History of perforated duodenal ulcer Normocytic normochromic anemia Patient had multiple his hemoglobin again at seven and was transferred 1 unit of PRBC today And underwent EGD which reported no active bleed Patient also had bloody study stools today Plan Continue IV Protonix to 40 mg b.i.d. Continue NS at 75 mL/hour Continue Zofran 4 mg IV q.6h p.r.n. for nausea/vomiting Check H&H q.6h Colonoscopy was planned initially but considering patient's turnaround of diagnosis flare stitcher team deemed the patient unfit for colonoscopy at this point Median arcuate ligament syndrome Splenic hypodense lesion Colonic diverticular disease. Abdominal pelvis CTA; reported 70% narrowing of the proximal celiac artery; atherosclerotic disease and coronary artery calcification noted and spleen hypodense measuring 10 mm Plan: Consulted vascular surgeon , he recommended Dr. Gurpreet Vázquez advised that, given the degree of stenosis and the possible underlying median arcuate ligament syndrome (MALS), the patient would benefit from referral to a tertiary care center as outpatient Recurrent syncope Blurry vision Carotid artery ultrasound reported no significant stenosis; moderate bilateral atherosclerotic plaque Head CT reported no acute changes;Chronic sequelae of microangiopathy and atrophic cortical volume loss. Continue IV fluids Heart failure with reduced ejection fraction Echocardiogram reported EF of 45%. The left ventricle is normal size with mild proximal septal thickening Patient has no signs of fluid overload, and appears dehydrated BNP is mildly elevated at 185 Patient has continued to has a blood pressure; We will initiate GDMT drugs once patient stabilizes Diabetes mellitus type 2 complicated with peripheral neuropathy which was diagnosed two years ago Noncompliant Patient's HbA1c is elevated at 7 Initiated the patient on severe hyperglycemia hypoglycemic protocol Patient stated that he normally uses gabapentin for his peripheral neuropathy but stopped using couple of months ago; currently he has no neuropathic pain; hold gabapentin CKD stage G2 Continue IV fluids Transaminitis History of hepatitis C; patient has mild elevation of AST Benign prostatic hyperplasia Continue home medication tamsulosin 0.4 mg p.o. daily Active drug abuse Patient states he continues to smoke marijuana every day Patient's Toxicology tested positive for fentanyl Ordered social service and substance abuse consults Diet: Clear liquid diet DVT prophylaxis: SCDs GI prophylaxis: Protonix Disposition: Continue to closely monitor the patient. Dr. Pa had a detailed conversation with Dr. Vázquez, who suggested that patient would require referral to a tertiary care center as outpatient, as per Dr. Vázquez. Patient will get discharge tomorrow Lizzy Linton MD Internal Medicine Resident, PGY 1 Date of Service: Jan 16, 2025 Billing Provider: ASHLIE PA MD Common Visit Codes: [id number] INP/OBS CARE(HIGH) LIZZY LINTON, RES Jan 16, 2025 19:26 ASHLIE PA MD Jan 19, 2025 16:28
[2025-01-17] VITALS (9 sets, daily range): BP systolic 89–138; BP diastolic 47–73; PULSE 64–90; RESP 14–22; TEMP 97–98.2; O2SAT 95–99
[2025-01-17 06:49] LABS: APTT 23 SECONDS (22-32); INR 1.1 INR
[2025-01-17 06:53] LABS: MEAN PLATELET VOLUME 8.2 FL (7.4-10.4); RED CELL DISTRIBUTION WIDTH 14.4 % (11.5-14.5)
[2025-01-17 07:08] LABS: CREATININE 1.02 MG/DL (0.60-1.10); PHOSPHORUS 2.7 MG/DL (2.3-4.5); TOTAL CARBON DIOXIDE 22.2 MMOL/L (24-32); eCRCL 81 ML/MIN; eGFR 74 ML/MIN
[2025-01-17] MEDS ORDERED: iron sucrose complex injection 300 MG in normal saline 250ml IV soln 250 ML IV SCH (15:55)
--- NOTE | 2025-01-17 17:17 | PROGRESS NOTE- Residence ---
Progress Note - Resident Providers to CC Resident Creating Document: LIZZY LINTON RES CC: LENY SANCHEZ DO ~ Antibiotic Timeout Antibiotic Ordered?: No Subjective The patient has been evaluated at the bedside. Has remained stable overnight. No episodes of vomiting, melena or hematochezia reported. Patient continues to have black tarry stools Objective Vital Signs Date Time Temp Pulse Resp B/P (MAP) Pulse Ox O2 Delivery O2 Flow Rate FiO2 01/17/25 15:45 22 01/17/25 15:00 97.4 69 131/66 (87) 99 Room Air 01/15/25 18:00 2.0 01/15/25 16:36 N/A Result Diagram: 01/17/2561001/17/25610 General: Awake, oriented to person, place and time; HEENT: Pale conjunctivae, sclerae clear, no icterus, pupil is equal in both sides, reactive to light, no ear discharge, no pharyngeal erythema or an edema. Patient has few teeth in the upper jaw Neck: Supple, no JVD, no lymphadenopathy and thyromegaly. Chest: Equal air entry on both lungs, no additional sounds no rhonchi no wheezing at the moment. Cardiovascular: S1-S2 regular sinus rhythm and, regular rate, no gallops, no rubs, no murmurs Abdomen: No visible peristalsis, severe tenderness noted no guarding, no rigidity; surgical scar noted Extremities: No cyanosis clubbing or edema, capillary refill intact, peripheral pulsations are intact on both sides. Patient has a right 4th toe amputation; patient has left knee surgical scar Central Nervous System: No focal neurological deficits, no motor or sensory weakness in all 4 extremities, could move all 4 extremities, 2+ deep tendon reflexes, negative Babinski. Musculoskeletal: No joint swelling, deformities, inflammations, and no scoliosis and back tenderness Skin: Warm and dry. Dry oral mucosa. Coagulation Studies Laboratory Tests Test 01/17/25 06:11 Prothrombin Time 11.1 SECONDS (9.0-12.0) INR International Normalized Ratio 1.1 INR Activated Partial Thromboplast Time 23 SECONDS (22-32) Coagulation Comments Advance Care Planning Advanced Care plannin - 30 Minutes Assessment Assessment 59 years old male patient came to the hospital transferred from [facility] for further management of upper GI bleeding. Plan Plan Possible upper GI bleed History of perforated duodenal ulcer Normocytic normochromic anemia Patient had multiple his hemoglobin again at seven and was transferred 1 unit of PRBC today And underwent EGD which reported no active bleed Patient also had bloody study stools today Plan Continue IV Protonix to 40 mg b.i.d. Continue NS at 75 mL/hour Continue Zofran 4 mg IV q.6h p.r.n. for nausea/vomiting Check H&H q.6h Colonoscopy was planned initially but considering patient's turnaround of diagnosis drafter civil engineering team deemed the patient unfit for colonoscopy at this point Median arcuate ligament syndrome Splenic hypodense lesion Colonic diverticular disease. Abdominal pelvis CTA; reported 70% narrowing of the proximal celiac artery; atherosclerotic disease and coronary artery calcification noted and spleen hypodense measuring 10 mm Plan: Consulted vascular surgeon , he recommended Dr. Gurpreet Vázquez advised that, given the degree of stenosis and the possible underlying median arcuate ligament syndrome (MALS), the patient would benefit from referral to a tertiary care center as outpatient Normocytic hyperchromic anemia Patient's iron is extremely low at 16; %saturation 5% Initiated the patient on Venofer will discharge patient with the iron sulfate oral pills with vitamin-C for better absorption Recurrent syncope Blurry vision Carotid artery ultrasound reported no significant stenosis; moderate bilateral atherosclerotic plaque Head CT reported no acute changes;Chronic sequelae of microangiopathy and atrophic cortical volume loss. Continue IV fluids Heart failure with reduced ejection fraction Echocardiogram reported EF of 45%. The left ventricle is normal size with mild proximal septal thickening Patient has no signs of fluid overload, and appears dehydrated BNP is mildly elevated at 185 Patient has continued to have a low blood pressure; We will initiate GDMT drugs once patient stabilizes Diabetes mellitus type 2 complicated with peripheral neuropathy which was diagnosed two years ago Noncompliant Patient's HbA1c is elevated at 7 Initiated the patient on hyperglycemia hypoglycemic protocol Patient stated that he normally uses gabapentin for his peripheral neuropathy but stopped using couple of months ago; currently he has no neuropathic pain; hold gabapentin CKD stage G2 Continue IV fluids Transaminitis History of hepatitis C; patient has mild elevation of AST Benign prostatic hyperplasia Continue home medication tamsulosin 0.4 mg p.o. daily Active drug abuse Patient states he continues to smoke marijuana every day Patient's Toxicology tested positive for fentanyl Ordered social service and substance abuse consults Diet: Clear liquid diet DVT prophylaxis: SCDs GI prophylaxis: Protonix Disposition: Continue to closely monitor the patient. Dr. Pa had a detailed conversation with Dr. Vázquez, who suggested that patient would require referral to a tertiary care center as outpatient, as per Dr. Vázquez. Spoke with patient's nurse to arrange face sheet for the patient because patient needs referrals for interventional radiologist, general surgeon Dr. Vázquez and primary care doctor Lizzy Linton MD Internal Medicine Resident, PGY 1 Date of Service: Jan 17, 2025 Billing Provider: LENY SANCHEZ JAHNAVI, RES Jan 17, 2025 17:17 LENY SANCHEZ DO Jan 17, 2025 18:04
[2025-01-17] MEDS: iron sucrose complex injection 200 MG in normal saline 100ml IV soln 100 ML IV SCH (18:26)
[2025-01-18 02:00] VITALS: BP_SYST 108; BP_SYST 109; BP_SYST 113; BP_DIAS 47; BP_DIAS 53; BP_DIAS 55; PULSE 65; PULSE 67; PULSE 80; RESP 16; TEMP 98.4; O2SAT 98
[2025-01-18 06:00] VITALS: BP 103/49; PULSE 76; RESP 15; TEMP 97.7; O2SAT 96
[2025-01-18 06:42] LABS: MEAN PLATELET VOLUME 7.9 FL (7.4-10.4); RED CELL DISTRIBUTION WIDTH 14.1 % (11.5-14.5)
[2025-01-18 06:47] LABS: INR 1.1 INR
[2025-01-18 06:51] LABS: CREATININE 1.06 MG/DL (0.60-1.10); PHOSPHORUS 2.9 MG/DL (2.3-4.5); TOTAL CARBON DIOXIDE 24.7 MMOL/L (24-32); eCRCL 78 ML/MIN; eGFR 71 ML/MIN
[2025-01-18] MEDS ORDERED: magnesium sulf-water 2g/50mL 50 ML IV PRN (07:15)
[2025-01-18] MEDS ORDERED: potassium Cl 40MEQ/1/2NS 520ml 520 ML IV PRN (07:15)
[2025-01-18] MEDS ORDERED: magnesium Cl slow-release 64mg tablet PO PRN (07:15)
[2025-01-18] MEDS ORDERED: magnesium sulf-water 4G/100mL 100 ML IV PRN (07:15)
[2025-01-18] MEDS ORDERED: potassium Cl 20 mEq SR tablet PO PRN (07:15)
[2025-01-18] MEDS: potassium Cl 20 mEq SR tablet PO PRN (07:29)
[2025-01-18] MEDS: ringers solution, lacted 1,000 ML IV SCH (07:57)
[2025-01-18 08:00] VITALS: RESP 17; O2SAT 96
[2025-01-18] MEDS: K and/or MAG REPLACEMENT MC SCH (08:00)
[2025-01-18] MEDS ORDERED: HYDR-3972 PO ×2 (09:30→10:19)
[2025-01-18] MEDS ORDERED: PANT40TA54 PO ×2 (09:30→10:19)
[2025-01-18 11:00] VITALS: BP 128/74; PULSE 78; RESP 15; TEMP 97.6; O2SAT 100
--- NOTE | 2025-01-18 12:22 | DISCHARGE SUMMARY-Residence ---
Discharge Summary Providers to CC Resident Creating Document: LIZZY LINTON, RES CC: LENY SANCHEZ DO ~ Discharge Summary Admission Diagnosis: GI bleed Hospital Course DATE OF ADMISSION: 01/14/2025 DATE OF DISCHARGE: 01/18/2025 Discharge Diagnosis\Comment: Possible upper GI bleed History of perforated duodenal ulcer Normocytic normochromic anemia Median arcuate ligament syndrome Splenic hypodense lesion Colonic diverticular disease. Normocytic hyperchromic anemia Recurrent syncope Blurry vision Heart failure with reduced ejection fraction Diabetes mellitus type 2 complicated with peripheral neuropathy which was diagnosed two years ago CKD stage G2 Transaminitis Benign prostatic hyperplasia Active drug abuse Operations\Procedures: EGD on 01/14/2025 Consultants: Dr. Garcia bag press operator Dr. Alejandra - surgeon Dr. Vázquez -surgeon Complications: None Condition on DC: Stable New Medications: Hydrocodone Bit/Acetaminophen (Hydrocodon-Acetaminophn 10-325 tablet) 10mg- 325mg Tablet 1 EACH PO Q6H PRN for severe pain (7-10), #20 TAB Pantoprazole Sodium (Pantoprazole Sodium) 40 Mg Tablet.dr 40 MG PO DAILY, #30 TAB.SR Continued Medications: Epinephrine (Epipen 2-Filemon) 0.3 Mg/0.3 Ml Auto.injct Unknown Dose IM ONCE for 1 Day, #1 PKT 0 Refills Furosemide* (Lasix*) 20 Mg Tablet 40 TAB PO DAILY for 30 Days, #30 TAB Gabapentin Enacarbil (Horizant) 300 Mg Tablet.er 1 TAB PO Q12H for 30 Days, #60 TAB 0 Refills Insulin Glargine,Hum.rec.anlog* (Lantus*) 100 Unit/1 Ml Vial 10 UNITS SUBCUT HS for 30 Days, #5 ML Insulin Lispro (Insulin Lispro) 100 Unit/Ml Vial Loratadine (Loratadine) 10 Mg Tablet 1 TAB PO DAILY for allergy symptoms for 30 Days, #30 TAB 0 Refills Tamsulosin Hcl* (Flomax*) 0.4 Mg Cap.sr.24h 1 CAP PO DAILY for 30 Days, #30 CAP Discharge Summary: HPI as per admitting physician This 59-year-old male with a history of gastritis, perforated duodenal ulcer-s/p laparotomy, hepatitis-C, CKD, bilateral decreased hearing, diabetes mellitus type 2 was transferred from [facility] for higher level of care GI consultation. He complains that he started having black vomitus and black tarry stools about five days back. Mentioned that he has several episodes - about 5-10 in a day. Also complains of diffuse abdominal pain. States that he is drinking milk a lot lately as eating solid food is hurting his abdomen. Mentioned that he had history of perforated duodenal ulcer and got a surgery done about 1-2 years back-unsure about the specificity of the surgery. Mentioned that he got an EGD done in the past but unsure about the results. He also had two colonoscopies done in the past and last one was about 6-7 years back and that it was normal. Denies using NSAIDs or aspirin or other blood thinners at home. Mentioned that coffee upsets his stomach and recently tea is also causing abdominal discomfort. Denies using any medications at home. His last insulin stage was about 10 months back. He also mentioned that he is feeli ng dizzy and falling a lot in the last couple of months. He feels dizzy and then falls to the ground . Usually has these episodes when he walks and also when he suddenly sits up from supine position. He hit his head and loses consciousness as well. His last fall was yesterday. Per the transfer records, he was recently admitted in late October/early November with severe sepsis secondary to UTI, lactic acidosis and ROBERT. His urine culture grew pansensitive E coli and was treated with ceftriaxone. He had acute metabolic encephalopathy and also had falls back then. He was diagnosed with new onset heart failure with a mid- range EF (40-45%) but patient denies being diagnosed with any CHF and using any Lasix at home. He is A1c back then was 9.4. He complained of diplopia back then but head CT was negative for any acute intracranial abnormality. Telemetry showed no arrhythmias back then. He is still complains of blurry vision. Now, at the outside hospital, CTA angio abdomen/pelvis with contrast was done which showed no evidence of active GI bleed, elevation of the left hemidiaphragm, mild heterogenicity can be related to atelectasis, 9 mm hypodense lesion within the spleen stable, mild perinephric stranding, no hydronephrosis, colonic diverticula including hypodense diverticular limits evaluation for a bleed, under distended thick-walled urinary bladder prostatomegaly with calcifications, subcentimeter short axis lymph nodes, fat and omentum containing ventral hernia. Received Protonix loading dose, Reglan 10 mg IV once and Zofran 4 mg IV once and fentanyl 50 mcg IV once at the outside hospital. HGB at the outside hospital was eight and now it is 7.5. Did not receive any blood transfusion at the outside hospital. UA done at the outside hospital negative for any infection and urine tox was positive for THC. Stool occult blood test was positive with the outside hospital. Hospital course This 59-year-old male with a history of gastritis, perforated duodenal ulcer-s/p laparotomy, hepatitis-C, CKD, bilateral decreased hearing, diabetes mellitus type 2 was transferred from [facility] for higher level of care GI consultation. Patient complained of having black vomitus and black tarry stools which started about five days ago he mentioned that he has had severe episode about 5-10 episodes per day and also complains of diffuse abdominal pain; patient's hemoglobin dropped during this stay and was transferred 1 unit of PRBC. Patient has a history of perforated duodenal ulcer; underwent EGD which reported no active bleeding ;we initiated the patient on Protonix drip initially and then transitioned to IV Protonix. Patient continued to have black tarry stools we initially planned to get a colonoscopy for the patient, but patient had low blood pressure at and decrease in RR and a rapid was called and patient became extremely agitated and anxious. At that point we got a CT abdomen pelvis to rule out any pneumothorax or air under diaphragm. However, patient's pain was very disproportionate and raised suspicion for something more severe; we ordered an abdominal pelvis CTA which showed 70% narrowing of the proximal celiac artery pointing the diagnosis towards median arcuate ligament syndrome. At this point general surgeon Dr. Alejandra was consulted and he recommended Dr. Vázquez. Dr. Vázquez advised that, given the degree of stenosis and the possible underlying median arcuate ligament syndrome (MALS), the patient would benefit from referral to a tertiary care center as outpatient. Patient also had normocytic hypochromic anemia with extremely low iron and low TIBC saturation, initiated the patient on Venofer. Patient also complained of recurrent syncope blurry vision we ordered a carotid ultrasound which reported no significant stenosis but moderate bilateral atherosclerotic plaque, CT head was done which showed no acute changes but showed chronic sequela of microangiopathy and atrophy cortical volume loss. Patient's echocardiogram was done which reported EF of 45%, but we did not initiate an GDMT drugs at this point because patient had fluctuating low blood pressures and continued to have black tarry stools. Patient has a history of diabetes mellitus type 2 complicated with peripheral nephropathy which was diagnosed two years ago patient stated that he has been non compliant with his medication; HbA1c is elevated at seven and patient was initially on hyperglycemia hypoglycemic protocol. Patient also has a history of peripheral neuropathy for which patient used to take gabapentin but he stopped a couple of months ago because he no longer had any neuropathic pain. Patient was diagnosed with CKD stage G2 we continued IV fluids and eventually patient's creatinine came back to normal. Patient also has diagnosis of benign prostatic hyperplasia, continued patient's home medication tamsulosin 0.4 mg p.o. daily. Significant imaging: Carotid ultrasound 01/14/25 No hemodynamically significant stenosis by velocity criteria. Moderate bilateral atherosclerotic plaque. Echocardiogram 01/14/25 The left ventricle is normal size with mild proximal septal thickening. Overall systolic function is mildly decreased. LVEF is 45%. Right ventricle is mildly dilated with adequate function. The left atrium size is normal. Trileaflet AV appears mildly sclerotic without stenosis. No insufficiency. Mitral valve leaflets are thickened with mild annular calcification. No stenosis. Trace regurgitation. The tricuspid valve is normal in structure with trace regurgitation. The pulmonary valve is normal in structure with trace insufficiency. Normal pericardium. No effusion. Head CT 01/14/25 1. No acute intracranial abnormality. 2. Chronic sequelae of microangiopathy and atrophic cortical volume loss. EGD 01/14/2025 Findings normal esophagus, large paraesophageal hernia. Antrum of the stomach was biopsied. Normal duodenal bulb. No blood or bleeding lesions were seen induced stomach, esophagus or duodenal bulb. Abdominal x-ray 01/15/25 multiple loops of air distended small bowel up to approximately 3.5 cm which can be secondary ileus, obstruction. Cholecystectomy. Atherosclerotic disease. Abdominal CT 01/15/25 Elevation left hemidiaphragm. Left ventral wall hernia containing fat measuring 2.5 cm. Atherosclerotic disease. Cholecystectomy. Colonic diverticular disease. Chest/abdomen/pelvis CTA Gastric wall edema / thickening and mucosal hyperemia, possibly secondary to gastritis. Recommend GI consultation to further evaluate. Patent SMA. No evidence for bowel pneumatosis. Approximately 70% narrowing of the proximal celiac artery which could be secondary to median arcuate ligament , Atherosclerotic disease. Coronary artery calcification disease. Splenic hypodense lesion measuring 10 mm which can be further characterized on multiphasic MRI abdomen with and without contrast Colonic diverticular disease. Mesentric ultrasound 01/15/25 Very poor visualization due to bowel gas. Celiac, hepatic, and splenic arteries are not visualized. Superficial femoral artery is poorly visualized, but no stenosis is noted in visualized portions. Physical examination the time of discharge General: Awake, oriented to person, place and time; HEENT: Pale conjunctivae, sclerae clear, no icterus, pupil is equal in both sides, reactive to light, no ear discharge, no pharyngeal erythema or an edema. Patient has few teeth in the upper jaw Neck: Supple, no JVD, no lymphadenopathy and thyromegaly. Chest: Equal air entry on both lungs, no additional sounds no rhonchi no wheezing at the moment. Cardiovascular: S1-S2 regular sinus rhythm and, regular rate, no gallops, no rubs, no murmurs Abdomen: No visible peristalsis, severe tenderness noted no guarding, no rigidity; surgical scar noted Extremities: No cyanosis clubbing or edema, capillary refill intact, peripheral pulsations are intact on both sides. Patient has a right 4th toe amputation; patient has left knee surgical scar Central Nervous System: No focal neurological deficits, no motor or sensory weakness in all 4 extremities, could move all 4 extremities, 2+ deep tendon reflexes, negative Babinski. Musculoskeletal: No joint swelling, deformities, inflammations, and no scoliosis and back tenderness Skin: Warm and dry. Dry oral mucosa. Vital Signs Date Time Temp Pulse Resp B/P (MAP) Pulse Ox O2 Delivery O2 Flow Rate FiO2 01/18/25 11:00 97.6 78 15 128/74 (92) 100 Room Air 01/15/25 18:00 2.0 01/15/25 16:36 N/A Laboratory Tests Test 01/16/25 16:38 01/16/25 18:33 01/16/25 22:28 01/17/25 06:11 Glucometer 176 mg/dl 213 mg/dl White Blood Count 5.4 X10'3 5.1 X10'3 Red Blood Count 2.99 X10'6 2.58 X10'6 Hemoglobin 9.6 g/dl 8.3 g/dl Hematocrit 28.2 % 23.9 % Mean Corpuscular Volume 94.2 FL 92.7 FL Mean Corpuscular Hemoglobin 32.0 PG 32.3 PG Mean Corpuscular Hemoglobin Concent 34.0 g/dL 34.9 g/dL Red Cell Distribution Width 14.6 % 14.4 % Platelet Count 203 X10'3 163 X10'3 Mean Platelet Volume 8.2 FL 8.2 FL Hematology Comments Neutrophils (%) (Auto) 54.9 % Lymphocytes (%) (Auto) 28.6 % Monocytes (%) (Auto) 9.2 % Eosinophils (%) (Auto) 6.4 % Basophils (%) (Auto) 0.9 % Neutrophils # (Auto) 2.8 X10'3 Lymphocytes # (Auto) 1.5 X10'3 Monocytes # (Auto) 0.5 X10'3 Eosinophils # (Auto) 0.3 X10'3 Basophils # (Auto) 0.0 X10'3 CBC Comment Prothrombin Time 11.1 SECONDS INR International Normalized Ratio 1.1 INR Activated Partial Thromboplast Time 23 SECONDS Coagulation Comments Sodium Level 143 MMOL/L Potassium Level 3.8 MMOL/L Chloride Level 113 MMOL/L Carbon Dioxide Level 22.2 MMOL/L Anion Gap 8 Blood Urea Nitrogen 12 MG/DL Creatinine 1.02 MG/DL Estimated GFR/1.73 m2 74 ML/MIN BUN/Creatinine Ratio 11.8 Glucose Level 124 MG/DL Calcium Level 7.6 MG/DL Phosphorus Level 2.7 MG/DL Magnesium Level 1.7 MG/DL Total Bilirubin 0.4 MG/DL Aspartate Amino Transf (AST/SGOT) 44 U/L Alanine Aminotransferase (ALT/SGPT) 64 U/L Alkaline Phosphatase 64 IU/L Total Protein 4.8 G/DL Albumin 2.3 G/DL Globulin 2.5 G/DL Albumin/Globulin Ratio 0.9 Chemistry Comments Test 01/17/25 07:30 01/17/25 12:22 01/17/25 17:41 01/17/25 21:53 Glucometer 137 mg/dl 135 mg/dl 131 mg/dl 164 mg/dl Test 01/18/25 05:42 01/18/25 07:27 White Blood Count 5.2 X10'3 Red Blood Count 2.74 X10'6 Hemoglobin 8.9 g/dl Hematocrit 25.6 % Mean Corpuscular Volume 93.4 FL Mean Corpuscular Hemoglobin 32.4 PG Mean Corpuscular Hemoglobin Concent 34.7 g/dL Red Cell Distribution Width 14.1 % Platelet Count 213 X10'3 Mean Platelet Volume 7.9 FL Neutrophils (%) (Auto) 53.0 % Lymphocytes (%) (Auto) 28.6 % Monocytes (%) (Auto) 11.0 % Eosinophils (%) (Auto) 6.1 % Basophils (%) (Auto) 1.3 % Neutrophils # (Auto) 2.8 X10'3 Lymphocytes # (Auto) 1.5 X10'3 Monocytes # (Auto) 0.6 X10'3 Eosinophils # (Auto) 0.3 X10'3 Basophils # (Auto) 0.1 X10'3 CBC Comment Prothrombin Time 10.9 SECONDS INR International Normalized Ratio 1.1 INR Coagulation Comments Sodium Level 144 MMOL/L Potassium Level 3.2 MMOL/L Chloride Level 112 MMOL/L Carbon Dioxide Level 24.7 MMOL/L Anion Gap 7 Blood Urea Nitrogen 10 MG/DL Creatinine 1.06 MG/DL Estimated GFR/1.73 m2 71 ML/MIN BUN/Creatinine Ratio 9.4 Glucose Level 88 MG/DL Calcium Level 7.6 MG/DL Phosphorus Level 2.9 MG/DL Magnesium Level 1.5 MG/DL Total Bilirubin 0.4 MG/DL Aspartate Amino Transf (AST/SGOT) 44 U/L Alanine Aminotransferase (ALT/SGPT) 67 U/L Alkaline Phosphatase 67 IU/L Total Protein 5.2 G/DL Albumin 2.5 G/DL Globulin 2.7 G/DL Albumin/Globulin Ratio 0.9 Chemistry Comments Glucometer 90 mg/dl Discharge instructions Please follow up with your primary care doctor Please note you have been diagnosed with median arcuate ligament syndrome, you would need prompt establishment of care with Dr. Vázquez, surgeon. You would also need to follow up with Interventional radiologist Please recheck your hemogram within a week Please continue Protonix 40 mg p.o. dialy Please follow up with a issuing operator for your reduced ejection fraction of your heart RETURN TO ED IN CASE OF INCREASE IN ABDOMINAL PAIN/HEMATEMESIS/SHORTNESS OF ISAÍAS TH You have a low serum Iron level and will need to buy over the counter Iron and take twice a day. Recheck a basic metabolic panel in 1 week to monitor your blood chemestries your blood potassium is a little low and was replaced. Discharge medications New Medications: Hydrocodone Bit/Acetaminophen (Hydrocodon-Acetaminophn 10-325 tablet) 10mg- 325mg Tablet Pantoprazole Sodium 40 Mg Tablet. Continued Medications: Epinephrine (Epipen 2-Filemon) 0.3 Mg/0.3 Ml Auto.injct Furosemide* (Lasix*) 20 Mg Tablet Gabapentin Enacarbil (Horizant) 300 Mg Tablet.er Insulin Glargine,Hum.rec.anlog* (Lantus*) 100 Unit/1 Ml Vial Insulin Lispro 100 Unit/Ml Vial Loratadine 10 Mg Tablet Tamsulosin Hcl* (Flomax*) 0.4 Mg Cap.sr.24h The patient felt ready to be discharged and was medically cleared to be discharged on 01/18/2025 The patient was seen and evaluated on day of discharge. Time spent on discharge 40 minutes The patient requested pain medication for discharge and the patient was discharged with a script for [place] 10/325 one tablet every 6 hours for severe pain a total of 20 tablets were prescribed. *Problems/Diagnosis: (1) Median arcuate ligament syndrome (2) Hypokalemia (3) GI bleed Status: Acute Total Time Spent on D/C: > 30 Minutes Date of Service: Jan 18, 2025 Billing Provider: LENY SANCHEZ DO Common Visit Codes: 54891-BHM/OBS DISCH DAY >30min LIZZY ILNTON, RES Jan 18, 2025 12:16 LENY SANCHEZ DO Jan 18, 2025 14:19
== END 2025-01-18 13:31 | disposition home or self-care (01) | DRG 253 ==
LOC: ER 23:02 → ED HOLD 01-14 00:53 → PCU 3S 01-14 04:24
PROVIDERS: ADMIT Internal Medicine; ATTEND Family Medicine
PROC: 0DB78ZX Excision of Stomach, Pylorus, Via Natural or Artificial Opening Endoscopic, Diagnostic (ICD-10-PCS; 2025-01-14)
PROC: 30233N1 Transfusion of Nonautologous Red Blood Cells into Peripheral Vein, Percutaneous Approach (ICD-10-PCS; principal; 2025-01-14 09:10)
PROC: 05HD33Z Insertion of Infusion Device into Right Cephalic Vein, Percutaneous Approach (ICD-10-PCS; 2025-01-16)
PROC: B54MZZA Ultrasonography of Right Upper Extremity Veins, Guidance (ICD-10-PCS; 2025-01-16)
DX: K92.0 Hematemesis (principal); E87.20 Acidosis, unspecified; E87.3 Alkalosis; D73.89 Other diseases of spleen; E11.22 Type 2 diabetes mellitus with diabetic chronic kidney disease; D64.9 Anemia, unspecified; I77.4 Celiac artery compression syndrome; E11.42 Type 2 diabetes mellitus with diabetic polyneuropathy; I13.0 Hypertensive heart and chronic kidney disease with heart failure and stage 1 through stage 4 chronic kidney disease, or unspecified chronic kidney disease; F12.10 Cannabis abuse, uncomplicated; I50.22 Chronic systolic (congestive) heart failure; N18.2 Chronic kidney disease, stage 2 (mild); R74.01 Elevation of levels of liver transaminase levels; N40.0 Benign prostatic hyperplasia without lower urinary tract symptoms; I49.3 Ventricular premature depolarization; K44.9 Diaphragmatic hernia without obstruction or gangrene; K57.30 Diverticulosis of large intestine without perforation or abscess without bleeding; Z79.899 Other long term (current) drug therapy; Z87.11 Personal history of peptic ulcer disease; Z88.8 Allergy status to other drugs, medicaments and biological substances; Z91.018 Allergy to other foods; Z90.49 Acquired absence of other specified parts of digestive tract; Z91.199 Patient's noncompliance with other medical treatment and regimen due to unspecified reason
CPT/HCPCS: 36410; 36415; 36430; 36600; 43239; 70450; 71045; 71275; 74018; 74174; 74176; 76937; 80053; 80061; 80305; 80320; 81003; 82272; 82607; 82728; 82746; 82803; 82948; 83036; 83540; 83550; 83605; 83690; 83735; 83880; 84100; 84443; 84466; 84484; 85018; 85025; 85027; 85610; 85730; 86885; 86900; 86901; 86920; 87040; 87081; 93005; 93306; 93880; 93975; 94760; 94799; 96374; 96375; 97161; 97530; 99291; A6258; A6402; C1751; G0378; J1171; J1756; J1815; J2003; J2250; J2405; J2470; J2704; J3010; J3360; J3490; J7030; J7040; J7120; P9016; Q9967